=== PATIENT | female | born 1980 | race African-American/Black ===

== ENCOUNTER 2017-01-04 13:55 | Emergency (ER) | payer OTHER ==
[2017-01-04] MEDS ORDERED: OXYCODONE/APAP 5/325MG COMBO TABLET PO ONE (14:04)
--- NOTE | 2017-01-04 14:10 | PDOC ---
[id number] 01/04/17 14:03 01/04/17 14:03 01/04/17 14:03 01/04/17 14:03 01/04/17 14:03 Medical Decision Making - Medical Decision Making 01/04/17 14:08 Rapid Medical Triage: Pt comes with back pain that began last night when she got up from the ground, where she was playing with her daughter. Currently breast feeding. Pt is ambulating with distress. She will be initially given percocet and robaxin. We will send off a urine test. Pt will be initially evaluated in fast track *DC/Admit/Observation/Transfer Diagnosis at time of Disposition: Spine pain, cervical - Discharge Dispostion Disposition: HOME Condition at time of disposition: Fair - Prescriptions Prescriptions: Cyclobenzaprine HCl [Flexeril -] 10 mg PO TID PRN #12 tablet PRN Reason: Muscle Spasms Methylprednisolone [Medrol Dose Harvey] 4 mg PO ASDIR #21 tablet - Referrals Referrals: William Mejia MD [Staff Physician] - Dickson Chen MD [Staff Physician] - STAFF,NOT ON [Primary Care Provider] - - Patient Instructions Additional Instructions: follow with the neurosurgeon or with [facility] Neurologist Address: [address] [place] [address] [address], [place] [address] take the medrol dose pack as prescribed, please do not breast feed baby as discussed below: Corticosteroids are excreted in breast milk. The officer captain notes that when used systemically, maternal use of corticosteroids have the potential to cause adverse events in a nursing infant (eg, growth suppression, interfere with endogenous corticosteroid production) and therefore recommends a decision be made whether to discontinue nursing or to discontinue the drug, taking into account the importance of treatment to the mother. If there is concern about exposure to the , some guidelines recommend waiting 4 hours after the maternal dose of an oral systemic corticosteroid before breast-feeding in order to decrease potential exposure to the nursing infant take flexeril for muscle spasm as directed , please speak with the pharmacist about breast feeding the baby this may make your sleepy apply warm compresses to the area of pain every 2hrs for 20 minutes warm showers return to ER for any worsening symptoms
[2017-01-04 14:15] VITALS: BP 113/73; PULSE 63; TEMP 98.2; BMI 23.8
[2017-01-04] MEDS ORDERED: CYCLOBENZAPRINE HCL 10 MG TABLET (FP) PO ONE (15:15)
[2017-01-04] MEDS ORDERED: KETOROLAC TROMETHAMINE 60 MG/2 ML VIAL IM ONE (15:15)
--- NOTE | 2017-01-04 15:20 | PDOC ---
History of Present Illness - General Chief Complaint: Back Pain Stated Complaint: BACK PAIN Time Seen by Provider: 01/04/17 14:04 History Source: Patient Exam Limitations: No Limitations - History of Present Illness Initial Comments: 01/04/17 15:17 36 yr female presents to ER with neck pain raidiaates to her arms, upper back pain started 2 months ago getting worse. Pt has a 5 month old child currentyl breast feeding, cosleeps with baby states she wakes up stiff and sore in the morning. Pt [place] [facility] [place] had cervical spine CT done. Pt eloped from ER stating "it was way too crowded". Pt states she has not taken any pain meds because she is nursing. 01/04/17 15:20 Severity: reports: moderate Pain Location: reports: neck Method of Injury: Yes: unknown Modifying Factors: improves with: None Past History - Past Medical History Allergies/Adverse Reactions: Allergies Allergy/AdvReac Type Severity Reaction Status Date / Time Penicillins Allergy Severe Swelling Verified 01/04/17 14:01 strawberries Allergy Intermediate Hives Uncoded 01/04/17 14:01 Home Medications: Ambulatory Orders Acetaminophen [Tylenol] 650 mg PO Q4H PRN #20 tablet 02/18/16 Albuterol Sulfate Inhaler - [Ventolin HFA Inhaler -] 2 inh PO PRN 02/18/16 Fluticasone Propionate [Flovent Diskus] 250 mcg IH BID 02/18/16 Metoclopramide HCl [Reglan] 10 mg PO Q6H PRN #15 tablet 02/18/16 Cyclobenzaprine HCl [Flexeril -] 10 mg PO TID PRN #12 tablet 01/04/17 Methylprednisolone [Medrol Dose Harvey] 4 mg PO ASDIR #21 tablet 01/04/17 Asthma: Yes - Reproductive History (#): 3 Para: 2 Therapeutic (s) & number: No Tubal Ligation: No Spontaneous : 0 - Immunization History Td Vaccination: Yes TDAP Vaccination: Yes Immunization Up to Date: Yes - Psycho/Social/Smoking Cessation Hx Anxiety: Yes Suicidal Ideation: No Smoking Status: No Smoking History: Never smoked Have you smoked in the past 12 months: No Number of Cigarettes Smoked Daily: 0 If you are a former smoker, when did you quit?: 0 Cigars Per Day: 0 Hx Alcohol Use: No Drug/Substance Use Hx: Yes Substance Use Type: Marijuana Hx Substance Use Treatment: (1 month ago) Trauma Specific PMHX - Complaint Specific PMHX Arthritis: No Back Injury: No Neck Injury: No Hx Sacro Iliac Joint Dysfunction: No *Physical Exam - Vital Signs Last Vital Signs Temp Pulse Resp BP Pulse Ox 98.2 F 63 18 113/73 99 01/04/17 14:03 01/04/17 14:03 01/04/17 14:03 01/04/17 14:03 01/04/17 14:03 - Physical Exam General Appearance: Yes: Nourished HEENT: positive: EOMI, MICHELLE, Normal ENT Inspection, TMs Normal, Pharynx Normal Neck: positive: Tender, Supple, Tender lateral, Tender midline. negative: Lymphadenopathy (R), Lymphadenopathy (L), Rigidity Respiratory/Chest: positive: Lungs Clear, Normal Breath Sounds Cardiovascular: positive: Regular Rhythm, Regular Rate Gastrointestinal/Abdominal: positive: Normal Bowel Sounds, Soft Musculoskeletal: positive: Normal Inspection, Vertebral Tenderness (cervical spine ) Extremity: positive: Normal Capillary Refill, Normal Inspection, Normal Range of Motion Integumentary: positive: Normal Color, Dry, Warm Neurologic: positive: Fully Oriented, Alert, Normal Mood/Affect, Normal Response , Motor Strength 5/5, Other (bilateral arms with 5/5 strength , sensation intact ). negative: Confused ED Treatment Course - ADDITIONAL ORDERS Additional order review: Laboratory Results 01/04/17 14:07 Urine HCG, Qual Negative Medical Decision Making - Medical Decision Making 01/04/17 15:21 cc: neck pain worse the past month burning sensation radiating to her arms no shortness of breath no chest painor trouble breathing I spoke with Alla at [facility] states pt had a cat scan of head which was negative and a cat scan of her cervical spine which should herniated disc with protrusion [id number]. I spoke with the patient and will give her toradol and flexeril will dc on medrol dose pack, flexeril and strict follow up [facility] neurosurgeon pt and her significant other agree with plan of care. I have discussed with the patient that she should return to [facility] for further care, if symptoms worsen or persist. pt understands and agrees she needs to see the neurosurgeon call today to make an appointment. 01/04/17 16:15 01/04/17 16:16 *DC/Admit/Observation/Transfer Diagnosis at time of Disposition: Spine pain, cervical - Discharge Dispostion Disposition: HOME Condition at time of disposition: Fair - Prescriptions Prescriptions: Cyclobenzaprine HCl [Flexeril -] 10 mg PO TID PRN #12 tablet PRN Reason: Muscle Spasms Methylprednisolone [Medrol Dose Harvey] 4 mg PO ASDIR #21 tablet - Referrals Referrals: STAFF,NOT ON [Primary Care Provider] - Dickson Chen MD [Staff Physician] - William Mejia MD [Staff Physician] - - Patient Instructions Additional Instructions: follow with the neurosurgeon or with [facility] Neurologist Address: [address] [place] [address] [address], [place] [address] take the medrol dose pack as prescribed, please do not breast feed baby as discussed below: Corticosteroids are excreted in breast milk. The gold leaf gilder notes that when used systemically, maternal use of corticosteroids have the potential to cause adverse events in a nursing (eg, growth suppression, interfere with endogenous corticosteroid production) and therefore recommends a decision be made whether to discontinue nursing or to discontinue the drug, taking into account the importance of treatment to the mother. If there is concern about exposure to the infant, some guidelines recommend waiting 4 hours after the maternal dose of an oral systemic corticosteroid before breast-feeding in order to decrease potential exposure to the nursing take flexeril for muscle spasm as directed , please speak with the pharmacist about breast feeding the baby this may make your sleepy apply warm compresses to the area of pain every 2hrs for 20 minutes warm showers return to ER for any worsening symptoms
[2017-01-04] MEDS ORDERED: KETOROLAC TROMETHAMINE 60 MG/2 ML VIAL ONE (15:21)
[2017-01-04] MEDS ORDERED: CYCLOBENZAPRINE HCL 10 MG TABLET (FP) ONE (15:21)
[2017-01-04] MEDS: METHOCARBAMOL 500 MG TABLET PO ONE ×2 (15:30→15:31)
== END 2017-01-04 16:25 | disposition home or self-care (01) ==
LOC: JER 13:55 → JERFT 13:55
PROC: 3E0233Z Introduction of Anti-inflammatory into Muscle, Percutaneous Approach (ICD-10-PCS; principal; 2017-01-04)
DX: M54.2 Cervicalgia (principal)
CPT/HCPCS: 84703; 96372; 99281-25

== ENCOUNTER 2021-01-25 23:56 | Emergency (ER) | payer OTHER ==
[2021-01-26 00:24] VITALS: BP 113/52; PULSE 81; TEMP 98.3; BMI 23.9
[2021-01-26] MEDS ORDERED: LIDOCAINE 5% TOPICAL PATCH TP ONE (00:50)
[2021-01-26] MEDS ORDERED: METHOCARBAMOL 500 MG TABLET PO ONE (00:50)
[2021-01-26] MEDS ORDERED: IBUPROFEN 600 MG TABLET (FP) PO ONE ×2 (00:50→00:54)
[2021-01-26] MEDS ORDERED: LIDOCAINE 5% TOPICAL PATCH ONE (00:54)
[2021-01-26] MEDS ORDERED: METHOCARBAMOL 500 MG TABLET ONE (00:54)
[2021-01-26] MEDS ORDERED: LIDOCAINE PATCH REMOVAL MC SCH (22:00)
== END 2021-01-26 02:31 | disposition home or self-care (01) ==
LOC: JER 23:56
DX: M50.90 Cervical disc disorder, unspecified, unspecified cervical region (principal)
CPT/HCPCS: 72125-TC; 99284-25

== ENCOUNTER → 2021-08-01 | Emergency (ER) | payer OTHER ==
[~2021-08-01] MED LIST: FAMOTIDINE 10 MG TABLET ONE; FAMOTIDINE 10 MG TABLET PO ONE; MAG HYDROX/AL HYDROX/SIMETH 30 ML UNIT-DOSE CUP ONE; MAG HYDROX/AL HYDROX/SIMETH 30 ML UNIT-DOSE CUP PO ONE
[2021-08-01 19:05] VITALS: BP 103/65; PULSE 84; TEMP 98.4; BMI 22.7
[2021-08-01 20:47] LABS: BASO % 1.3 % (0-2.0); EOS % 1.6 % (0-4.5); HEMOGLOBIN 10.7 GM/dL (10.7-15.3); LYMPH % 38.3 % (8-40); MCH 23.5 pg (25.7-33.7); MCHC 31.5 g/dl (32.0-36.0); MEAN CELL VOLUME 74.6 fl (80-96); MEAN PLT VOLUME 7.2 fl (7.5-11.1); MONO % 10.7 % (3.8-10.2); NEUT % 48.1 % (42.8-82.8); PLATELET COUNT 317 10^3/uL (134-434); RBC 4.56 M/mm3 (3.60-5.2); RDW 20.7 % (11.6-15.6); WHITE BLOOD COUNT 4.5 K/mm3 (4.0-10.0)
[2021-08-01 21:07] LABS: CHLORIDE 110 mmol/L (98-107); SODIUM 139 mmol/L (136-145)
[2021-08-01 21:09] LABS: ALBUMIN 3.7 g/dl (3.4-5.0); ANION GAP 4 MMOL/L (8-16); BLOOD UREA NITROGEN 12.6 mg/dL (7-18); CALCIUM 8.9 mg/dL (8.5-10.1); CO2 25 mmol/L (21-32); GLUCOSE,RANDOM 100 mg/dL (74-106)
[2021-08-01 21:12] LABS: CREATININE 0.9 mg/dL (0.55-1.3); SGOT/AST 12 U/L (15-37); SGPT/ALT 23 U/L (13-61)
[2021-08-01 21:14] LABS: BILIRUBIN,TOTAL 0.5 mg/dL (0.2-1); TOT PROT 7.6 g/dl (6.4-8.2)
[2021-08-01 21:15] LABS: ALK PHOS 49 U/L (45-117)
[2021-08-01 21:36] LABS: ANISOCYTOSIS 3+; MACROCYTOSIS 0; OVALOCYTE 1+; PLATELET ESTIMATE NORMAL
== END | disposition left against medical advice (07) ==
LOC: JER 18:53
DX: R07.9 Chest pain, unspecified (principal)
CPT/HCPCS: 36415; 80053; 84484; 85025; 99284-25